=== PATIENT | male | born 1980 | race Caucasian/White ===

== ENCOUNTER 2017-10-07 11:17 | Emergency (ER) | payer BC, OTHER ==
[2017-10-07 11:32] VITALS: BP 144/73
[2017-10-07] MEDS ORDERED: Diazepam 5 MG Tab PO ONE (11:50)
--- NOTE | 2017-10-07 12:05 | EDM.PDOC ---
ED HPI GENERAL MEDICAL PROBLEM - General Chief Complaint: Back Pain or Injury Stated Complaint: BACK PAIN Time Seen by Provider: 10/07/17 11:42 Source of Information: Reports: Patient History Limitations: Reports: No Limitations - History of Present Illness INITIAL COMMENTS - FREE TEXT/NARRATIVE: 37-year-old male presents for evaluation and treatment of low back pain. Patient reports that he was attempting to put a sock on this morning. Sounds as if he was stretching and hopping on 1 foot and he developed sudden severe back pain. Reports it is located in the lower back along the spine. No radiation into his buttocks or legs. No numbness or tingling into his buttocks or legs. He feels best with his hips and knees flexed. Has significant pain when they are extended. No saddle anesthesia. No fevers or chills. No bowel or bladder incontinence. Initial injury occurred in 2009 at that time he was lifting and twisting. Since then he has had several flareups of his back pain. States the flares normally last a few days then subsided on their own. He was seen at the ER in May 2016. No imaging was done. He was given Flexeril and tramadol. He did take the Flexeril and tramadol prior to arrival in the ER but continues to have discomfort. States he's had x-rays but never any MRIs Primary care provider is Dr. Villa. Onset: Today Location: Reports: Back Lower Back Pain Score (Numeric/FACES): 4 - Related Data Allergies Allergy/AdvReac Type Severity Reaction Status Date / Time No Known Allergies Allergy Verified 10/07/17 11:32 Home Meds: Home Meds traMADol [Ultram] 50 mg PO Q6H PRN #14 tablet 05/11/16 [Rx] Acetaminophen/oxyCODONE [Percocet 325-5 MG] 1 tab PO Q4HR PRN #20 tab 10/07/17 [ Rx] Cyclobenzaprine [Flexeril] 10 mg PO ASDIRECTED PRN 10/07/17 [History] Naproxen [IMW: Naproxen] 500 mg PO BID #30 tab 10/07/17 [Rx] Orphenadrine [Norflex] 100 mg PO BID PRN #20 tab.er 10/07/17 [Rx] Past Medical History Musculoskeletal History: Reports: Gout - Past Surgical History HEENT Surgical History: Reports: Oral Surgery Social & Family History - Tobacco Use Smoking Status *Q: Former Smoker Packs/Tins Daily: 0.3 Used Tobacco, but Quit: Yes Month/Year Tobacco Last Used: 10 years - Caffeine Use Caffeine Use: Reports: Soda - Recreational Drug Use Recreational Drug Use: No - Living Situation & Occupation Living situation: Reports: , Alone Occupation: Employed ED ROS GENERAL - Review of Systems Review Of Systems: See Below Constitutional: Denies: Fever, Chills Musculoskeletal: Reports: Back Pain (lower back). Denies: Neck Pain, Leg Pain Neurological: Reports: Difficulty Walking (due to low back pain). Denies: Numbness, Tingling, Weakness ED EXAM,LOWER BACK PAIN/INJURY - Physical Exam Exam: See Below Exam Limited By: No Limitations General Appearance: Alert, WD/WN, Moderate Distress Eye Exam: Bilateral Eye: Nystagmus (resting) Respiratory/Chest: No Respiratory Distress, Lungs Clear, Normal Breath Sounds Cardiovascular: Normal Peripheral Pulses, Regular Rate, Rhythm, No Murmur Back Exam: Decreased Range of Motion, Muscle Spasm, Vertebral Tenderness Extremities: Normal Inspection, Normal Capillary Refill, Other (3+ dorsalis pedis and posterior tibialis pulses) Neurological: Alert, Normal Mood/Affect, Normal Dorsiflexion, Normal Plantar Flexion, Straight Leg Raise (L), Straight Leg Raise (R), Difficulty Walking ( slow and deliberate, walking slightly hunched ovr). No: Saddle Anesthesia Psychiatric: Normal Affect, Normal Mood Skin Exam: Warm, Dry, Normal Color Course - Vital Signs Last Recorded V/S: Last Vital Signs Temp 36.6 C 10/07/17 11:28 Pulse 67 10/07/17 11:28 Resp 18 10/07/17 11:28 BP 144/73 H 10/07/17 11:28 Pulse Ox 99 10/07/17 11:28 - Orders/Labs/Meds Meds: Medications Discontinued Medications Generic Name Dose Route Start Last Admin Trade Name Edu PRN Reason Stop Dose Admin Diazepam 5 mg 10/07/17 11:50 10/07/17 12:06 Valium. PO 10/07/17 11:51 5 mg ONETIME ONE Administration Hydromorphone HCl 0.5 mg 10/07/17 11:50 10/07/17 12:08 Dilaudid IM 10/07/17 11:51 0.5 mg ONETIME ONE Administration Hydromorphone HCl Confirm 10/07/17 12:01 10/07/17 12:09 Dilaudid Administered 10/07/17 12:02 Not Given Dose 0.5 mg .ROUTE .STK-MED ONE Ketorolac Tromethamine 60 mg 10/07/17 11:49 10/07/17 12:06 Toradol IM 10/07/17 11:50 60 mg ONETIME ONE Administration - Radiology Interpretation Free Text/Narrative:: MRI lumbar spine T1-weighted axial images were obtained from above the T12-L1 disc inferiorly to the L5-S1 disc. T2-weighted axial images were obtained from above the L1-L2 disc through the L5-S1 disc. T1, T2 and fat-suppressed sagittal images were obtained. Comparison: No prior lumbar spine imaging. Findings: Posterior disc is preserved. No central canal stenosis or neural foraminal stenosis is seen. T12-L1: Posterior disc is preserved. No central canal stenosis or neural foraminal stenosis is seen. L1-L2: Posterior disc is preserved. No central canal stenosis or neural foraminal stenosis is seen. L2-L3: Posterior disc is preserved. No central canal stenosis or neural foraminal stenosis is seen. L3-L4: Posterior disc is preserved. No central canal stenosis or neural foraminal stenosis is seen. L4-L5: Slight circumferential disc bulge is seen. Mild asymmetric disc protrusion is seen posteriorly to the midline. No central canal stenosis is seen. Neural foramina are patent where the nerve roots exit. Slight disc bulging is seen into the inferior neural foramina. Mild degenerative dehydration change is noted within the disc as well as mild degenerative endplate signal change. L5-S1: Mild to moderate disc space narrowing is seen. Mild diffuse posterior disc protrusion is seen. No central canal stenosis is noted. Neural foramina are patent where the nerve roots exit. Mild degenerative dehydration change is noted within the disc. Conus medullaris and cauda equina show no abnormal signal or mass. Impression: 1. Degenerative change at L4-L5 and L5-S1 as described above. - Re-Assessments/Exams Free Text/Narrative Re-Assessment/Exam: 10/07/17 13:14 Checked on the patient. Pain is improving but still has significant pain with extension of the hips and feels best to have the hips and knees flexed. I do concerns that he may have herniated a disc. I was able to get him in with MRI at 1500 today. Will continue monitor him In the meantime. 10/07/17 15:22 Reviewed the MRIs results with the patient. His significant pain is likely from muscle pain and spasm. I'll put him on some Norflex and naproxen. Percocet as needed. Will discharge home. Discharge instructions as documented. Departure - Departure Time of Disposition: 15:30 Disposition: Home, Self-Care 01 Condition: Fair Clinical Impression: Muscle spasm of back, Bulging discs - Discharge Information Prescriptions: Acetaminophen/oxyCODONE [Percocet 325-5 MG] 1 tab PO Q4HR PRN #20 tab PRN Reason: Pain Naproxen [IMW: Naproxen] 500 mg PO BID #30 tab Orphenadrine [Norflex] 100 mg PO BID PRN #20 tab.er PRN Reason: Muscle Spasm Instructions: Back Pain, Adult Referrals: Ernst Villa Jr, MD [Primary Care Provider] - Forms: ED Department Discharge Additional Instructions: you were given medication in the ER that can affect your ability to drive and operate machinery. Do not drive or operate machinery within 12 hours of taking prescription narcotic pain medication. Take the naproxen 1 tab twice a day. This medication is for pain relief. Take Norflex one tablet twice a day as needed for muscle pain and spasm. For pain not relieved by the naproxen take Percocet 1 or 2 tabs every 4-6 hours as needed for severe pain. Percocet is habit-forming, take as few of these as needed to control your pain. Do not drive or operate machinery within 12 hours of taking Percocet. Recommend using heat to the back for additional pain relief. Recommended particular moist heat. may also use a topical products such as icyhot or BenGay. Recommend following up with physical therapy. [facility]. Call [phone] to schedule with one of them. Follow-up with your primary care provider if your symptoms have not improved much within one week. Please return to the ER if your symptoms change or worsen.
[2017-10-07] MEDS: Ketorolac 60 MG/2 ML SDV IM ONE (12:06)
[2017-10-07] MEDS: HYDROmorphone 0.5 MG/0.5 ML SYRINGE ONE ×2 (12:06→12:09)
[2017-10-07] MEDS: HYDROmorphone 1 MG/ML Syringe IM ONE (12:08)
--- NOTE | 2017-10-07 15:03 | MR ---
MRI lumbar spine T1-weighted axial images were obtained from above the T12-L1 disc inferiorly to the L5-S1 disc. T2-weighted axial images were obtained from above the L1-L2 disc through the L5-S1 disc. T1, T2 and fat-suppressed sagittal images were obtained. Comparison: No prior lumbar spine imaging. Findings: Posterior disc is preserved. No central canal stenosis or neural foraminal stenosis is seen. T12-L1: Posterior disc is preserved. No central canal stenosis or neural foraminal stenosis is seen. L1-L2: Posterior disc is preserved. No central canal stenosis or neural foraminal stenosis is seen. L2-L3: Posterior disc is preserved. No central canal stenosis or neural foraminal stenosis is seen. L3-L4: Posterior disc is preserved. No central canal stenosis or neural foraminal stenosis is seen. L4-L5: Slight circumferential disc bulge is seen. Mild asymmetric disc protrusion is seen posteriorly to the midline. No central canal stenosis is seen. Neural foramina are patent where the nerve roots exit. Slight disc bulging is seen into the inferior neural foramina. Mild degenerative dehydration change is noted within the disc as well as mild degenerative endplate signal change. L5-S1: Mild to moderate disc space narrowing is seen. Mild diffuse posterior disc protrusion is seen. No central canal stenosis is noted. Neural foramina are patent where the nerve roots exit. Mild degenerative dehydration change is noted within the disc. Conus medullaris and cauda equina show no abnormal signal or mass. Impression: 1. Degenerative change at L4-L5 and L5-S1 as described above. Diagnostic code #2
== END 2017-10-07 16:59 | disposition home or self-care (01) ==
LOC: JD.ED 11:17
DX: M62.830 Muscle spasm of back (principal); M51.26 Other intervertebral disc displacement, lumbar region; Z87.891 Personal history of nicotine dependence
CPT/HCPCS: 72148; 96372; 99284; A9270; J1170; J1885; 99283